=== PATIENT | male | born 1990 | race Caucasian/White ===

== ENCOUNTER 2016-08-08 01:41 | Emergency (ER) | payer SELFPAY ==
[2016-08-08 03:03] VITALS: BMI 22.9
[2016-08-08 03:09] VITALS: TEMP 98.4
--- NOTE | 2016-08-08 03:45 | ED PDOC ---
Arrival/HPI - General Chief Complaint: Medical Clearance Time Seen by Provider: 08/08/16 03:08 Historian: Patient - History of Present Illness Narrative History of Present Illness (Text): 08/08/16 03:40 Arnav Wayne is a 25 year old male, with a history of substance abuse and anxiety, presents to the emergency department complaining of withdrawal symptoms including tremors and nausea. Reports last drug use was yesterday. Denies any fever, chills, chest pain, shortness of breath, or any other complaints at this time. Time/Duration: 24 hours Symptom Onset: Gradual Symptom Course: Worsening Severity Level: Mild Context: Home Past Medical History - Provider Review Nursing Documentation Reviewed: Yes - Infectious Disease Hx of Infectious Diseases: None - Tetanus Immunization Tetanus Immunization: Up to Date - Past Medical History Past Medical History: No Previous - Psychiatric Hx Anxiety: Yes Hx Depression: No Hx Emotional Abuse: No Hx Physical Abuse: No Hx Substance Use: Yes (yesterday) Other/Comment: adhd - Past Surgical History Past Surgical History: No Previous - Anesthesia Hx Anesthesia: No Hx Anesthesia Reactions: No Hx Malignant Hyperthermia: No - Suicidal Assessment Feels Threatened In Home Enviroment: No Family/Social History - Physician Review Nursing Documentation Reviewed: Yes Family/Social History: No Known Family HX Smoking Status: Light Smoker < 10 Cigarettes Daily Hx Alcohol Use: No Hx Substance Use: Yes (yesterday) Hx Substance Use Treatment: No Allergies/Home Meds Allergies/Adverse Reactions: Allergies No Known Allergies Allergy (Verified 08/08/16 03:02) Review of Systems - Physician Review All systems were reviewed & negative as marked: Yes - Review of Systems Constitutional: Normal. absent: Fatigue, Fevers Respiratory: Normal. absent: SOB, Cough, Sputum Cardiovascular: Normal. absent: Chest Pain Gastrointestinal: Nausea Neurological: Other (tremulous ). absent: Headache, Dizziness Physical Exam Vital Signs Reviewed: Yes Vital Signs Temp Pulse Resp BP Pulse Ox 08/08/16 07:38 74 14 118/89 100 08/08/16 07:30 62 18 103/61 99 08/08/16 04:48 60 18 101/58 L 99 08/08/16 03:09 98.4 F 59 L 18 97/45 L 100 Temperature: Afebrile Blood Pressure: Hypotensive Pulse: Regular Respiratory Rate: Normal Appearance: Positive for: Well-Appearing, Non-Toxic, Comfortable Pain Distress: None Mental Status: Positive for: Alert and Oriented X 3 - Systems Exam Head: Present: Atraumatic, Normocephalic Pupils: Present: PERRL Conjunctiva: Present: Normal Respiratory/Chest: Present: Clear to Auscultation, Good Air Exchange. No: Respiratory Distress, Accessory Muscle Use Cardiovascular: Present: Regular Rate and Rhythm, Normal S1, S2. No: Murmurs Abdomen: Present: Normal Bowel Sounds. No: Tenderness, Distention, Peritoneal Signs Upper Extremity: Present: Other (tremors ) Neurological: Present: GCS=15, CN II-XII Intact, Speech Normal, Motor Func Grossly Intact, Normal Sensory Function Skin: Present: Warm, Dry, Normal Color. No: Rashes Psychiatric: Present: Alert, Oriented x 3 Medical Decision Making ED Course and Treatment: 08/08/16 03:49 Impression: A 25 year old male who presents to the ed complaining of narcotics withdrawal symptoms. Plan: -- Labs -- Ativan -- IV fluids -- Zofran Progress Notes: 08/08/16 03:51 Re-evaluation Time: 07:00 Reassessment Condition: Re-examined, Improved - Lab Interpretations Lab Results: 08/08/16 03:50 08/08/16 03:50 Lab Results 08/08/16 03:50: WBC 5.6 D, RBC 4.82, Hgb 13.9 L, Hct 41.7 L, MCV 86.5, MCH 28.8 , MCHC 33.3, RDW 13.2, Plt Count 244, MPV 9.7, Gran % 63.2, Lymph % (Auto) 26.8 , Todd % (Auto) 8.2 H, Eos % (Auto) 1.4 L, Baso % (Auto) 0.4, Gran # 3.56, Lymph # 1.5, Todd # 0.5, Eos # 0.1, Baso # 0.02, Sodium 142, Potassium 4.0, Chloride 102, Carbon Dioxide 27, Anion Gap 17, BUN 16, Creatinine 1.0, Est GFR ( Amer) > 60, Est GFR (Non-Af Amer) > 60, Random Glucose 93, Calcium 9.8, Total Bilirubin 0.8, AST 39, ALT 31, Alkaline Phosphatase 69, Total Protein 7.9 , Albumin 4.5, Globulin 3.4, Albumin/Globulin Ratio 1.3 I have reviewed the lab results: Yes - RAD Interpretation Chip Person: ED Physician - Medication Orders Current Medication Orders: Discontinued Medications Sodium Chloride (Sodium Chloride 0.9%) 1,000 mls @ 80 mls/hr IV .[id number] NELSON Last Admin: 08/08/16 07:01 Dose: 80 MLS/HR eMAR Start Stop Document 08/08/16 07:01 BURAK (Rec: 08/08/16 07:02 [id number]) Intravenous Solution Start Date 08/08/16 Start Time 04:00 End Date 08/08/16 End time 07:02 Total Infusion Time 182 Ketorolac Tromethamine (Toradol) 30 mg IVP ONCE ONE Stop: 08/08/16 06:53 Last Admin: 08/08/16 07:01 Dose: 30 MG IVP Administration Document 08/08/16 07:01 BURAK (Rec: 08/08/16 07:01 [facility]AK [id number]) Charges for Administration # of IVP Administrations 1 Lorazepam (Ativan) 1 mg IVP ONCE ONE PRN Reason: Protocol Stop: 08/08/16 03:13 Last Admin: 08/08/16 03:59 Dose: 1 MG Behavioural Document 08/08/16 03:59 BURAK (Rec: 08/08/16 04:00 BURAK [id number]) Nonmedicinal Nonmedicinal Interventions Redirect Behavior Behavior for Medication: Anxiety IVP Administration Document 08/08/16 03:59 BURAK (Rec: 08/08/16 04:00 BURAK [id number]) Charges for Administration # of IVP Administrations 1 Ondansetron HCl (Zofran Inj) 4 mg IVP STAT STA Stop: 08/08/16 03:13 Last Admin: 08/08/16 04:00 Dose: 4 MG IVP Administration Document 08/08/16 04:00 BURAK (Rec: 08/08/16 04:00 BURAK [id number]) Charges for Administration # of IVP Administrations 1 - Scribe Statement The provider has reviewed the documentation as recorded by the Oanh Richards Provider Attestation: All medical record entries made by the Scribe were at my direction and personally dictated by me. I have reviewed the chart and agree that the record accurately reflects my personal performance of the history, physical exam, medical decision making, and the department course for this patient. I have also personally directed, reviewed, and agree with the discharge instructions and disposition. Disposition/Present on Arrival - Present on Arrival Any Indicators Present on Arrival: No History of DVT/PE: No History of Uncontrolled Diabetes: No Urinary Catheter: No History of Decub. Ulcer: No History Surgical Site Infection Following: None - Disposition Have Diagnosis and Disposition been Completed?: Yes Diagnosis: Acute narcotic withdrawal Disposition: HOME/ ROUTINE Disposition Time: 07:32 Condition: GOOD Discharge Instructions (ExitCare): Narcotic Abuse (ED), Opioid Withdrawal (ED) Additional Instructions: call [facility] drug detox [phone] Referrals: [facility] [Outside] - Follow up with primary
[2016-08-08 03:57] LABS: ADD MANUAL DIFF? NO
[2016-08-08] MEDS: Sodium Chloride 0.9% 1,000 ML IV SCH ×2 (04:00→07:01)
[2016-08-08 04:11] LABS: WHITE BLOOD COUNT 5.6 10^3/ul (4.5-11.0)
[2016-08-08 04:12] LABS: ALB/GLOB RATIO 1.3 (1.1-1.8); ALKALINE PHOSPHATASE 69 U/L (38-133); ALT/SGPT 31 U/L (7-56); AST/SGOT 39 U/L (15-59); BILIRUBIN,TOTAL 0.8 mg/dL (0.2-1.3); BLOOD UREA NITROGEN 16 mg/dL (7-21); CALCIUM 9.8 mg/dL (8.4-10.5); CARBON DIOXIDE 27 mmol/L (21-33); CHLORIDE 102 mmol/L (95-110); GFR AFRICAN-AMERICAN > 60; GLUCOSE,RANDOM 93 mg/dL (70-110); GRAN % 63.2 % (50.0-68.0); HEMATOCRIT 41.7 % (42.0-52.0); LYMPH % 26.8 % (22.0-35.0); MEAN CELL VOLUME 86.5 fL (80.0-105.0); MEAN CORPUSCULAR HEMOGLOBIN 28.8 pg (25.0-35.0); MEAN CORPUSCULAR HGB CONC 33.3 g/dl (31.0-37.0); MEAN PLATELET VOLUME 9.7 fl (7.0-11.0); MONO % 8.2 % (1.0-6.0); PLATELET COUNT 244 10^3/uL (120.0-450.0); RED CELL DISTRIBUTION WIDTH 13.2 % (11.5-14.5); SODIUM 142 mmol/L (132-148); TOTAL PROTEIN 7.9 g/dL (5.8-8.3)
[2016-08-08 04:13] LABS: BASO # 0.02 K/mm3 (0.0-2.0); BASO % 0.4 % (0.0-3.0); EOS # 0.1 (0.0-0.7); EOS % 1.4 % (1.5-5.0); GRAN # 3.56 (1.4-6.5); LYMPH # 1.5 (1.2-3.4); MONO # 0.5 (0.1-0.6)
[2016-08-08 07:42] VITALS: BP 118/89; PULSE 74; RESP 14; O2SAT 100
== END 2016-08-08 07:42 | disposition home or self-care (01) ==
LOC: ED 01:41
DX: F11.23 Opioid dependence with withdrawal (principal)
CPT/HCPCS: 80053; 85025; 96361; 96374; 96375; 99283; J1885; J2060; J2405; J7040